=== PATIENT | male | born 1965 | race Caucasian/White ===

== ENCOUNTER 2016-11-03 12:51 | Day surgery (SDC) | payer BC ==
[2016-11-03] VITALS (18 sets, daily range): BP systolic 116–136; BP diastolic 81–91; PULSE 72–94; RESP 20–28; Ht 177.8 cm; Wt 106.0 kg
[~2016-11-03] VITALS: Ht 177.8 cm; Wt 106.0 kg
[~2016-11-03 12:51] MED LIST: SUCCINYLCHOLINE CHLORIDE 100 MG/5 ML SYG IV ONE
[2016-11-03] MEDS ORDERED: SOD CHLORIDE 0.9% 1,000 ML IV ONE (14:00)
[2016-11-03] MEDS ORDERED: CEFAZOLIN 2 GM/50 ML (PMX) 50 ML IVPB ONE (14:30)
--- NOTE | 2016-11-03 16:26 | HPN ---
Date/Time of Note Date/Time of Note DATE: 11/03/16 TIME: 16:25 Interval H&P Admission Note Pt. seen H&P reviewed: No system changes TAYLER HUNG MD Nov 03, 2016 16:25
[2016-11-03] MEDS ORDERED: LIDOCAINE 1% (MPF) 30 ML INJ ONE (16:43)
[2016-11-03] MEDS ORDERED: BUPIVACAINE 0.25%/EPI (SDV) 30 ML INJ ONE (16:43)
[2016-11-03] MEDS ORDERED: FENTAnyl 50 MCG/ML VIAL ONE (16:56)
[2016-11-03] MEDS ORDERED: SUCCINYLCHOLINE CHLORIDE 100 MG/5 ML SYG IV ONE ×2 (16:59→17:07)
[2016-11-03] MEDS ORDERED: ROCURONIUM 50 MG INJ ONE (17:07)
[2016-11-03] MEDS ORDERED: LIDOCAINE 2% (SDV) 5 ML INJ ONE (17:07)
[2016-11-03] MEDS ORDERED: NEOSTIGMINE 3 MG/3 ML SYRINGE ONE (17:07)
[2016-11-03] MEDS ORDERED: ROPIVACAINE 0.5 % 30 ML VIAL ONE (17:07)
[2016-11-03] MEDS ORDERED: CEFAZOLIN 1 GM INJ ONE (17:07)
[2016-11-03] MEDS ORDERED: GLYCOPYRROLATE 0.4 MG INJ ONE (17:07)
[2016-11-03] MEDS ORDERED: PROPOFOL 40 ML ONE (17:07)
[2016-11-03] MEDS ORDERED: POLYMYXIN/BACITRACIN 1L IRRIG ONE (17:14)
[2016-11-03] MEDS ORDERED: LABETALOL HCL 20MG INJ ONE (17:23)
--- NOTE | 2016-11-03 18:25 | OPR ---
Date/Time of Note Date/Time of Note DATE: 11/03/16 TIME: 18:17 Operative Report Procedure Date: Nov 03, 2016 Preoperative Diagnosis Ventral/umbilical hernia with chronically incarcerated fat Postoperative Diagnosis Ventral/umbilical hernia with chronically incarcerated fat Operation Performed Repair of ventral/umbilical hernia with mesh Surgeon: TAYLER HUNG MD Anesthesia: general Anesthesiologist: MARCELLA DE LOS SANTOS Estimated Blood Loss: minimal Specimens Hernia sac and contents Grafts/Implants Ethicon proceed ventral hernia patch size small Complications: None Pt Condition Post Procedure: stable Disposition: PACU Indications The patient is an obese 50-year-old male who presented to the office complaining of a painful bulge near his umbilicus. The patient was diagnosed on physical exam as having a chronically incarcerated ventral/umbilical hernia. He was scheduled for elective repair with mesh to prevent further complications of hernia disease which include, but are not limited to incarceration strangulation. All risks and benefits of the procedure including , but not limited to: Wound infection, excessive bleeding, postoperative seroma/ hematoma formation, hernia recurrence, chronic pain, etc. were all explained to the patient in full detail. He fully understood and wished to proceed with the procedure. Informed consent was obtained. Operative\Procedure Findings Ventral/umbilical hernia with chronically incarcerated omental fat. Procedure Description The patient was brought to the operating room and placed supine on the operating table. Bilateral sequential compression devices were placed on both lower extremities. A dose of broad-spectrum perioperative intravenous antibiotics was given. After the induction of smooth general endotracheal anesthesia the patient's abdomen was prepped and draped in standard surgical fashion. After performance of the surgical timeout 0.25% Marcaine with epinephrine was infiltrated around the inferior umbilicus. Semicircular incision was then made in the inferior umbilicus using a 15 blade scalpel. Incision was carried down through the skin and subcutaneous tissues using combination of Bovie electrocautery and blunt dissection. Upon reaching the anterior rectus fascia the umbilicus was encircled with a Isaura clamp and transected at its base. Hernia sac was dissected off of the umbilicus and opened. There was chronically incarcerated omental fat within the hernia sac. A Travis clamp was applied to the base of the hernia sac and contents. They were transected and passed off the field as specimen. The stump was tied with a 2-0 Vicryl tie. Remaining contents were reduced back into the intra-abdominal cavity. The hernia defect was repaired using a small Ethicon proceed ventral hernia patch. The mesh was soaked in antibiotic irrigation prior to placement into the field. The tails of the mesh were secured in place to the fascia using interrupted 2-0 Novafil sutures. With the mesh repair complete it was inspected and noted to be hemostatic. The wound was then irrigated with more antibiotic containing irrigation. The fascia was then reapproximated over the mesh using interrupted 0 PDS sutures in [id number] fashion. The umbilicus was then tacked back down to the fascia using interrupted 3-0 Vicryl suture. The wound was then closed in layers using interrupted 3-0 Vicryl sutures for the dermis. The skin was reapproximated using a running 4-0 Monocryl subcuticular suture. Further local anesthesia was applied around the skin and the incision site. Incision was then cleaned and Dermabond was applied. The patient was awoken from anesthesia and transferred to the recovery room in stable condition. All counts were correct at the end of the case 2. TAYLER HUNG MD Nov 03, 2016 18:25
[2016-11-03] MEDS ORDERED: morphine 2 MG INJ IV PRN (18:30)
[2016-11-03] MEDS ORDERED: KETOROLAC 30 MG INJ IV PRN (18:30)
[2016-11-03] MEDS ORDERED: ONDANSETRON 4 MG INJ IV PRN ×2 (18:30→19:00)
[2016-11-03] MEDS ORDERED: HYDROCODONE/APAP (5/325) TAB PO PRN ×2 (18:30)
[2016-11-03] MEDS ORDERED: MEPERIDINE 25 MG INJ IV PRN (19:00)
[2016-11-03] MEDS ORDERED: LABETALOL HCL 20MG INJ IV PRN (19:00)
[2016-11-03] MEDS ORDERED: DIPHENHYDRAMINE 50 MG INJ IV PRN (19:00)
[2016-11-03] MEDS ORDERED: METOCLOPRAMIDE 10 MG INJ IV PRN (19:00)
[2016-11-03] MEDS ORDERED: FENTAnyl 50 MCG/ML VIAL IV PRN ×2 (19:00)
[2016-11-03] MEDS ORDERED: HYDROmorphONE (0.2 MG/ML) 10ML SYG IV PRN ×3 (19:00)
[2016-11-03] MEDS ORDERED: ALBUTEROL 0.083% (NEB) 2.5 MG/3 ML AMP HHN ONE (19:00)
[2016-11-03] MEDS ORDERED: hydrALAzine 20 MG INJ IV PRN (19:00)
[2016-11-04] MEDS ORDERED: IBUPROFEN 600 MG TAB PO PRN (01:00)
== END 2016-11-03 20:09 | disposition home or self-care (01) ==
LOC: SDS 12:51
PROVIDERS: ATTEND Surgery
DX: K42.0 Umbilical hernia with obstruction, without gangrene (principal); E66.9 Obesity, unspecified; Z68.33 Body mass index [BMI] 33.0-33.9, adult; I10 Essential (primary) hypertension
CPT/HCPCS: 49587; 94664; C1781; J0690; J2175; J2405; J2795; J3010; J7999; Z7512; Z7610; 88302; J2710

== ENCOUNTER 2017-01-03 09:36 | Emergency (ER) | payer BC ==
[~2017-01-03] VITALS: Ht 177.8 cm; Wt 106.0 kg
[2017-01-03 10:11] VITALS: Ht 177.8 cm; Wt 106.0 kg
[2017-01-03] MEDS ORDERED: INDOMETHACIN 50 MG PO ONE (11:00)
--- NOTE | 2017-01-03 11:30 | RADRPT ---
PROCEDURE: US Lower extremity Venous. CLINICAL INDICATION: calf pain TECHNIQUE: Multiple sonographic images of the right lower extremity deep venous system was obtaine d utilizing grayscale, color-flow, compressive sonography and doppler imaging with augmentation. Th e images were reviewed on a PACS workstation. COMPARISON: None. FINDINGS: There is normal compressibility and flow within the right common femoral, deep femoral, superficial femoral, posterior tibial, peroneal and popliteal veins. IMPRESSION: No sonographic evidence for deep venous thrombosis. RPTAT:AAJJ Physician Sury Date Time Electronically viewed and signed by Physician Sury on 01/03/2017 11:30 /
--- NOTE | 2017-01-03 12:07 | RADRPT ---
PROCEDURE: Right knee x-ray CLINICAL INDICATION: knee pain TECHNIQUE: AP, lateral and oblique views of the knee were obtained. COMPARISON: None FINDINGS: There is normal mineralization. No acute fracture or dislocation is seen. There is a small joint effusion. There are no significant degenerative changes. There is no significant soft tissue swelling. IMPRESSION: A small joint effusion is seen. Otherwise, no significant abnormalities are identified. RPTAT:AAJJ Pete Zavala Physician Date Time Electronically viewed and signed by Pete Zavala Physician on 01/03/2017 12:06 GIRISH/
[2017-01-03] MEDS ORDERED: IBUP-1542 PO (12:20)
--- NOTE | 2017-01-03 17:31 | ERD ---
ER Documentation Chief Complaint Date/Time DATE: 01/03/17 TIME: 17:22 Chief Complaint NON-TRAUMATIC RT KNEE PAIN/INFLAMATION STARTING LAST NIGHT. HPI This is a 51-year-old male that presents to the ER with right knee pain that started last night. Patient states that he noticed his knee began to swell however he denies any redness or warmth to the touch. Patient does not have any history of trauma to the knee. He denies any lower leg pain. Patient denies any calf redness or swelling. He denies any numbness or tingling to his lower extremity. Patient denies any fevers or chills. He does have a history of gout. He takes allopurinol every day. ROS 12 point review of systems was done, all negative except per HPI. Medications Home Meds Active Scripts Ibuprofen* (Motrin*) 600 Mg Tab, 600 MG PO Q6, #30 TAB Prov:AD QUICK 01/03/17 Allergies Allergies: Coded Allergies: No Known Allergy (Unverified , 01/03/17) PMhx/Soc History of Surgery: Yes (TOES SX 21 YEARS AGO , HERNIA REPAIR ) Anesthesia Reaction: No Hx Neurological Disorder: No Hx Respiratory Disorders: No Hx Cardiac Disorders: No Hx Psychiatric Problems: No Hx Miscellaneous Medical Probl: Yes (GOUT ) Hx Alcohol Use: No Hx Substance Use: No Hx Tobacco Use: No Smoking Status: Never smoker Physical Exam Vitals Vital Signs Date Time Temp Pulse Resp B/P Pulse Ox O2 Delivery O2 Flow Rate FiO2 01/03/17 10:11 98.1 94 16 140/70 99 Physical Exam GENERAL: The patient is well developed and appropriate for usual state of health , in no apparent distress. HEENT: Atraumatic CHEST: Clear to auscultation bilaterally. There are no rales, wheezes or rhonchi. HEART: Regular rate and rhythm. No murmurs, clicks, rubs or gallops. EXTREMITIES: Right knee: Patient is able to bear weight and ambulate without pain. No surface trauma. No overlying erythema or warmth. The right knee is without obvious asymmetry when compared to the left knee. Patient is not able to deep bend 2/2 pain. he is able to fully extend knee, internal and external rotation. Not tender to palpation over the patella, + effusion is seen. Not tender over the medial or lateral joint line, or the medial or lateral tibial plateau. Not tender to palpation over the proximal fibular head. No quadricep tenderness. No laxity of the ACL, PCL, MCL or LCL. Negative Nery test. Negative anterior and posterior drawer. Distal motor neurovascular status intact. NEURO: Alert and oriented SKIN: The skin is warm and dry. Results 24 hrs Current Medications Medications (Trade) Dose Ordered Sig/Tan Route PRN Reason Start Time Stop Time Status Last Admin Dose Admin Indomethacin (Indocin) 50 mg ONCE ONCE PO 01/03/17 11:00 01/03/17 11:01 DC 01/03/17 11:33 Radiology Main Line: [phone] DIAGNOSTIC IMAGING REPORT Patient: HEIDY AN : 1965 Age: 51 Sex: M MR #: [id number] DOS: 01/03/17 0000 Ordering MD: AD QUICK PA-C Location: [facility] Room/Bed: PROCEDURE: US Lower extremity Venous. CLINICAL INDICATION: calf pain TECHNIQUE: Multiple sonographic images of the right lower extremity deep venous system was obtained utilizing grayscale, color-flow, compressive sonography and doppler imaging with augmentation. The images were reviewed on a PACS workstation. COMPARISON: None. FINDINGS: There is normal compressibility and flow within the right common femoral, deep femoral, superficial femoral, posterior tibial, peroneal and popliteal veins. IMPRESSION: No sonographic evidence for deep venous thrombosis. RPTAT:AAJJ Pete Zavala Physician Date Time Electronically viewed and signed by Pete Zavala Physician on 01/03/2017 11: 30 MC/ CC: AD QUICK [address] [place] [address] Radiology Main Line: [phone] DIAGNOSTIC IMAGING REPORT Patient: HEIDY AN : 1965 Age: 51 Sex: M MR #: [id number] DOS: 01/03/17 0000 Ordering MD: AD QUICK-C Location: [facility] Room/Bed: PROCEDURE: Right knee x-ray CLINICAL INDICATION: knee pain TECHNIQUE: AP, lateral and oblique views of the knee were obtained. COMPARISON: None FINDINGS: There is normal mineralization. No acute fracture or dislocation is seen. There is a small joint effusion. There are no significant degenerative changes. There is no significant soft tissue swelling. IMPRESSION: A small joint effusion is seen. Otherwise, no significant abnormalities are identified. RPTAT:AAJJ Physician Sury Date Time Electronically viewed and signed by Physician Sury on 01/03/2017 12: 06 MC/ CC: AD QUICK Procedures/MDM Differential diagnosis includes but is not limited to knee contusion, knee sprain, ligament injury, patellar dislocation, joint dislocation, patellar or tibial plateau fracture, Li's cyst, DVT, meniscus tear, prepatellar bursitis , septic joint, gout, tumor.Patient does have a history of gout, however area is red and area is not very painful I doubt this is gout. Patient does have a small effusion this may be causing the pain. I doubt this is septic joint or septic bursitis as patient is afebrile and extremely well-appearing. Patient is able to move his knee, however it is painful. Patient was given an Jet wrap he was neurovascularly intact before and after Jet wrap application. He will be sent home with ibuprofen. Patient is to follow-up with his primary care doctor within 1-2 days return to ER sooner if symptoms worsen. My medical decision making sure with the patient he understands and agrees with plan. Departure Diagnosis: Primary Impression: Knee pain Condition: Stable Patient Instructions: Knee Pain, Uncertain Cause Referrals: SILVINO ACOSTA (PCP) Additional Instructions: Call your primary care doctor TOMORROW for an appointment during the next 1-2 days.See the doctor sooner or return here if your condition worsens before your appointment time. AD QUICK Jan 03, 2017 17:31
== END 2017-01-03 12:40 | disposition home or self-care (01) ==
LOC: FTE 09:36
DX: M25.561 Pain in right knee (principal)
CPT/HCPCS: 73562; 93971; 99284; Z7610

== ENCOUNTER 2017-02-01 11:51 | Emergency (ER) | END 2017-02-01 15:28 | disposition home or self-care (01) | DX: R10.33 Periumbilical pain (principal) ==

== ENCOUNTER 2017-02-19 08:17 | Emergency (ER) | payer BC ==
[~2017-02-19] VITALS: Ht 172.7 cm; Wt 106.0 kg
[~2017-02-19 08:17] MED LIST changes: +IBUP-1542 PO; -SUCCINYLCHOLINE CHLORIDE 100 MG/5 ML SYG IV ONE
[2017-02-19 08:23] VITALS: Ht 172.7 cm; Wt 106.0 kg
[2017-02-19] MEDS ORDERED: ACYC800T PO (08:38)
[2017-02-19] MEDS ORDERED: IBUP400T22 PO (08:38)
--- NOTE | 2017-02-19 10:25 | ERD ---
ER Documentation Chief Complaint Chief Complaint HERPE OUT BREAK IN HIS PENIS HPI This is a 51-year-old male presenting to the emergency department for "herpes outbreak. Patient states he has had outbreaks before and believes he is having one now. Patient states he has burning, itching and pain to shaft of his penis 4 days. No penile discharge. No dysuria or hematuria. No recent unprotected sex. No pelvic or back pain. No abdominal pain, nausea or vomiting. ROS All systems reviewed and are negative except as per history of present illness. Medications Home Meds Active Scripts Ibuprofen* (Motrin*) 400 Mg Tab, 400 MG PO Q6, #30 TAB Prov:PAUL VERDUZCO NP 02/19/17 Acyclovir* (Acyclovir*) 800 Mg Tablet, 800 MG PO BID for 5 Days, TAB Prov:PAUL VERDUZCO NP 02/19/17 Ibuprofen* (Motrin*) 600 Mg Tab, 600 MG PO Q6, #30 TAB Prov:AD QUICK 01/03/17 Allergies Allergies: Coded Allergies: No Known Allergy (Unverified , 01/03/17) PMhx/Soc History of Surgery: Yes (TOES SX 21 YEARS AGO , HERNIA REPAIR ) Anesthesia Reaction: No Hx Neurological Disorder: No Hx Respiratory Disorders: No Hx Cardiac Disorders: No Hx Psychiatric Problems: No Hx Miscellaneous Medical Probl: Yes (GOUT ) Hx Alcohol Use: No Hx Substance Use: No Hx Tobacco Use: No Smoking Status: Never smoker Physical Exam Vitals Vital Signs Date Time Temp Pulse Resp B/P Pulse Ox O2 Delivery O2 Flow Rate FiO2 02/19/17 08:23 98.0 82 18 119/73 96 Physical Exam Const: No acute distress, alert Head: Atraumatic Eyes: Normal Conjunctiva Skin: No petechiae or rashes Back: No midline or flank tenderness Ext: No cyanosis, or edema Neur: Awake and alert Psych: Normal Mood and Affect : No paraphimosis or phimosis. There is multiple small erythematous vasicular lesions to shaft of penis. No abscess or drainage. No testicular swelling. Procedures/MDM MDM: This is a 51-year-old male presenting to emergency department for general pain and itching. Patient believes he is having a herpes outbreak and has had several in the past. Patient states he has had pain and itching to shaft of penis for last 4 days. Physical exam reveals multiple erythematous vesicular lesions to the shaft of penis. There is no abscess or drainage. No dysuria or hematuria. Vital signs are stable. No pelvic or back pain. No flank pain. Likely diagnosis is herpes simplex virus. Low suspicion for balanitis, Cellulitis, abscess, UTI, pyelonephritis, gonorrhea, chlamydia, Patient is appropriate for outpatient management and will be given prescription for acyclovir and ibuprofen. Instructed patient to follow-up with primary care provider in the next 2-3 days for reassessment and additional management. Return to ED for any high fever, chest pain, difficulty breathing, shortness breath, wheezing, vomiting, diarrhea, abdominal pain or any new or worsening symptoms. Patient verbalizes understanding. All questions answered at discharge. Disclaimer: Inadvertent spelling and grammatical errors are likely due to EHR/ dictation software use and do not reflect on the overall quality of patient care. Also, please note that the electronic time recorded on this note does not necessarily reflect the actual time of the patient encounter. Departure Diagnosis: Primary Impression: Herpes Condition: Stable Patient Instructions: Herpes: Treatment with Medication Referrals: SILVINO ACOSTA Additional Instructions: Call your primary care doctor TOMORROW for an appointment during the next 2-3 days.See the doctor sooner or return here if your condition worsens before your appointment time. Return to ED for any high fever, chest pain, difficulty breathing, shortness breath, wheezing, vomiting, diarrhea, abdominal pain or any new or worsening symptoms. PAUL VERDUZCO NP Feb 19, 2017 10:25
== END 2017-02-19 08:52 | disposition home or self-care (01) ==
LOC: E/R 08:17
DX: A60.01 Herpesviral infection of penis (principal)
CPT/HCPCS: 99283